=== PATIENT | female | born 1995 | race Hispanic/Latino ===

== ENCOUNTER 2022-03-15 11:03 | Emergency (ER) | payer OTHER ==
[~2022-03-15] VITALS: Ht 157.5 cm; Wt 81.6 kg
[2022-03-15 12:25] LABS: APPEARANCE,URINE CLOUDY (CLEAR); BILIRUBIN,URINE NEGATIVE (NEGATIVE); COLOR,URINE YELLOW (YELLOW); GLUCOSE, URINE (UA) NEGATIVE (NEGATIVE); KETONES,URINE NEGATIVE (NEGATIVE); LEUKOCYTE ESTERASE ,URINE 75 Leu/uL (NEGATIVE); NITRATE,URINE 2+ (NEGATIVE); OCCULT BLOOD,URINE SMALL (NEGATIVE); PROTEIN,URINE 20 mg/dL (NEGATIVE); UROBILINOGEN,URINE 0.2 mg/dL (0.2-1.0)
[2022-03-15 12:42] LABS: BACTERIA,URINE FEW /HPF (None Seen); CALCIUM OXALATE CRYSTALS,UR RARE /LPF (None Seen); MUCUS,URINE MANY LPF (None Seen); SQUAMOUS EPITHELIAL CELL,UR MANY /HPF (0-2)
[2022-03-15 12:53] VITALS: BP 128/61
[2022-03-15 12:58] LABS: HCG,QUALITATIVE URINE NEGATIVE (NEGATIVE)
[2022-03-15] MEDS ORDERED: KETOROLAC 30MG VIAL (30MG/ML) IM ONE (13:30)
[2022-03-15] MEDS ORDERED: PREDNISONE 20 MG TABLET PO ONE (13:30)
[2022-03-15] MEDS ORDERED: PRED20TA3 PO (13:35)
[2022-03-15] MEDS ORDERED: NAPR500T6 PO (13:35)
[2022-03-15] MEDS ORDERED: MACR100 PO (13:35)
[2022-03-15] MEDS ORDERED: CYCL10TA16 PO (13:35)
== END 2022-03-15 13:48 | disposition home or self-care (01) ==
LOC: EDH 11:03
DX: N39.0 Urinary tract infection, site not specified (principal); M54.50 Low back pain, unspecified
CPT/HCPCS: 99283; 87077; 87088; 87186; 81001; 81025; 96372; J1885